=== PATIENT | male | born 1970 | race Hispanic/Latino ===

== ENCOUNTER 2025-03-31 12:32 | Emergency (ER) | payer OTHER, SELFPAY ==
[2025-03-31 12:42] VITALS: BP 150/83
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
== END 2025-03-31 15:28 | disposition home or self-care (01) ==
LOC: EMR 12:32
PROVIDERS: EMERGENCY PHYSICIAN Emergency Medicine
DX: S20.20XA Contusion of thorax, unspecified, initial encounter (principal); V43.52XA Car driver injured in collision with other type car in traffic accident, initial encounter; E78.00 Pure hypercholesterolemia, unspecified; I10 Essential (primary) hypertension; I25.10 Atherosclerotic heart disease of native coronary artery without angina pectoris; I25.2 Old myocardial infarction; Z79.02 Long term (current) use of antithrombotics/antiplatelets; Z82.49 Family history of ischemic heart disease and other diseases of the circulatory system; Z86.19 Personal history of other infectious and parasitic diseases; Z87.891 Personal history of nicotine dependence; Z95.5 Presence of coronary angioplasty implant and graft
CPT/HCPCS: 71101; 73030; 73502; 99283